=== PATIENT | female | born 1995 | race African-American/Black ===

== ENCOUNTER 2019-03-08 06:37 | Outpatient (CLI) | payer MEDICAID ==
--- NOTE | 2019-03-08 08:31 | ULT ---
PELVIC ULTRASOUND WITH SHAW SCALE AND DOPPLER COLOR FLOW IMAGING TRANSVAGINAL AND TRANSABDOMINAL PELVIC ULTRASOUND PERFORMED: INDICATION: Pain. FINDINGS: No focal uterine lesion is identified. Endometrial stripe measures between 2 and 3 mm. There are ph ysiological-appearing follicles within the ovaries. Doppler assessment does reveal flow to each ovar y, with vascular waveforms elicited. No significant free pelvic fluid. Uterine size is documented at 8 x 5.5 x 5 cm. Right ovarian length is 2.8 cm and left ovarian length is 3.5 cm. Urinary bladder is mildly distended. There is mild prominence of pelvic vasculature. This can be seen in the clinical setting of pelvic co ngestion. IMPRESSION: 1. Doppler flow is documented to each ovary. 2. Normal-caliber endometrial stripe. 3. No definite acute process. POS: FROILANK
== END 2019-03-08 06:38 | disposition home or self-care (01) ==
LOC: BICULT 06:37
PROVIDERS: ATTEND Advanced Practice Midwife
DX: Z01.419 Encounter for gynecological examination (general) (routine) without abnormal findings (principal)
CPT/HCPCS: 76856

== ENCOUNTER 2019-12-30 20:52 | Emergency (ER) | payer MEDICAID ==
[2019-12-30] MEDS ORDERED: Bicillin LA 1.2 MILLION UNITS/2 ML SYRINGE ONE (21:27)
== END 2019-12-30 21:30 | disposition home or self-care (01) ==
LOC: ERS 20:52
DX: J02.0 Streptococcal pharyngitis (principal)
CPT/HCPCS: 87430; 96372; 99283; J0561

== ENCOUNTER 2020-03-19 08:33 | Outpatient (CLI) | payer MEDICAID ==
--- NOTE | 2020-03-19 10:44 | ULT ---
EXAM: OB ultrasound COMPARISON: None HISTORY: female. Evaluate size, dates, and anatomy. TECHNIQUE: Multiplanar grayscale and color Doppler transabdominal sonographic images are obtained. FINDINGS: There is a single intrauterine gestation in cephalic presentation. Cardiac Doppler demonstr ates heart tones with a heart rate of 153 beats per minute. The placenta is located posteriorly without evidence of placenta previa. Subjectively, there is a normal amount of amniotic f luid. Amniotic fluid index was not calculated. The cervical length based on transabdominal imaging measures 4.19 centimeters. biometry measurements: BPD 3.95 cm -- 18 weeks 1 day HC 14.49 cm -- 17 weeks 5 days AC 12.27 cm -- 18 weeks FL 2.61 cm -- 18 weeks The estimated gestational age by ultrasound is 18 weeks with an MERCEDES on08/20/2020. Gestational age by t he last menstrual period is 18 weeks. The estimated weight by ultrasound is 215 g (8 ounces). This represents 31 percentile for weight. A 4 chambered heart is difficult to definitely delineate, there is suggestion of a 4 chambered heart. The cerebellum, visualized portions of the spine, kidneys, urinary bladder, and cord insertion demonstrate a normal sonographic appearance. A three-vessel cord is not visualized. No definite anomalies are seen. IMPRESSION: 1. Single intrauterine gestation in cephalic presentation with heart tones documented. Estimat ed gestational age by ultrasound is 18 weeks. 2. Estimated weight is 215 g per densities 8 ounces).
== END 2020-03-19 08:34 | disposition home or self-care (01) ==
LOC: BICULT 08:33
PROVIDERS: ATTEND Family Medicine
DX: O09.892 Supervision of other high risk pregnancies, second trimester (principal); Z3A.18 18 weeks gestation of pregnancy
CPT/HCPCS: 76805

== ENCOUNTER 2020-08-09 07:44 | Outpatient (CLI) | payer OTHER ==
[2020-08-09 18:34] LABS: SARS-CoV-2 MS2 Positive; SARS-CoV-2 N Gene Negative; SARS-CoV-2 S Gene Negative; SARS-CoV-2 by NAA Not Detected (NotDetected); SARS-CoV-2 orf1ab Negative
== END 2020-08-09 07:45 | disposition home or self-care (01) ==
LOC: LABSCS 07:44
PROVIDERS: ATTEND Family Medicine
DX: Z20.828 Contact with and (suspected) exposure to other viral communicable diseases (principal)
CPT/HCPCS: 87635; U0003

== ENCOUNTER 2020-08-13 09:50 | Inpatient (IN) | payer BC, OTHER ==
[2020-08-13] MEDS ORDERED: hydrALAZINE 20 MG/ML VIAL SLOW IVP PRN ×2 (10:34→16:02)
[2020-08-13] MEDS ORDERED: Lactated Ringer's 1,000 ML IV SCH (10:34)
[2020-08-13] MEDS ORDERED: Promethazine HCl 25 MG/ML VIAL IM PRN ×3 (10:34→16:02)
[2020-08-13] MEDS ORDERED: CEFAZOLIN 2 GM in Premix Bag 1 BAG IVPB SCH (10:34)
[2020-08-13] MEDS ORDERED: Ondansetron PF 4 MG/2 ML Vial IVP PRN ×3 (10:34→16:02)
[2020-08-13] MEDS ORDERED: Oxytocin 10 UNITS/ML VIAL ONE ×4 (10:57→14:19)
[2020-08-13] MEDS ORDERED: PHENYLEPHRINE-NS 100 MCG/ML 10 ML SYRINGE ONE (10:57)
[2020-08-13] MEDS ORDERED: EPHEDRINE 25 MG/5 ML SYRINGE ONE (10:57)
[2020-08-13] MEDS ORDERED: Ondansetron PF 4 MG/2 ML Vial ONE (10:58)
[2020-08-13 11:04] VITALS: BMI 28.6
[2020-08-13 11:11] LABS: Hemoglobin 11.9 g/dL (12.0-16.0); Mean Corpuscular HGB CONC 31.9 g/dL (32.0-36.0); Mean Corpuscular Hemoglobin 24.6 pg (27.0-31.0); Mean Corpuscular Volume 77.3 fL (78.0-98.0); Mean Platelet Volume 9.6 fL (7.4-10.4); Platelet Count 141 thou/uL (130-400); RBC Distribution Width 24.6 % (11.5-14.5); Red Blood Cell (RBC) Count 4.84 mill/uL (4.20-5.40); White Blood Cell (WBC) Count 7.8 thou/uL (4.8-10.8)
[2020-08-13] MEDS ORDERED: Famotidine/PF 20 mg/2ml Vial SLOW IVP SCH (11:30)
[2020-08-13 11:37] LABS: Syphilis Antibody Nonreactive (Nonreactive); Syphilis Antibody Index 0.03 S/CO (<1.00 Non-Reactive)
[2020-08-13 11:38] LABS: HBSAg Index 0.37 S/CO (0-0.99); Hep B Surf Ag Non-Reactive S/CO (NonReactive)
[2020-08-13] MEDS ORDERED: L&D-Morphine 4 MG/ML VIAL SLOW IVP PRN (14:11)
[2020-08-13] MEDS ORDERED: Meperidine HCl/PF 25 MG/ML VIAL SLOW IVP PRN (14:11)
[2020-08-13] MEDS ORDERED: Naloxone HCl 0.4 mg/ml Vial IVP PRN ×2 (14:11)
[2020-08-13] MEDS ORDERED: Ondansetron HCl/PF 4 MG/2 ML Vial IVP PRN (14:11)
[2020-08-13] MEDS ORDERED: HYDROmorphone 2 MG/ML VIAL SLOW IVP PRN (14:11)
[2020-08-13] MEDS ORDERED: diphenhydrAMINE 50 MG/ML VIAL IVP PRN (14:11)
[2020-08-13] MEDS ORDERED: Promethazine HCl 25 MG SUPP PR PRN (14:11)
[2020-08-13] MEDS ORDERED: Naloxone HCl 0.4 mg/ml Vial IV PRN (14:11)
[2020-08-13] MEDS ORDERED: Ketorolac Tromethamine 30 MG/ML VIAL IVP PRN (14:11)
[2020-08-13] MEDS ORDERED: Ketorolac Tromethamine 30 MG/ML VIAL IVP SCH (14:15)
[2020-08-13] MEDS ORDERED: Communication Order-Pharmacy FS SCH (14:15)
[2020-08-13] MEDS ORDERED: Simethicone Chewable 80 MG TAB PO PRN (16:02)
[2020-08-13] MEDS ORDERED: Lanolin Ointment 7 GM TUBE TOP PRN (16:02)
[2020-08-13] MEDS ORDERED: diphenhydrAMINE 25 MG CAP PO PRN (16:02)
[2020-08-13] MEDS ORDERED: Bisacodyl 10 MG SUPP PR PRN (16:02)
[2020-08-13] MEDS: Ketorolac Tromethamine 30 MG/ML VIAL IVP SCH (17:20)
--- NOTE | 2020-08-13 20:13 | OP ---
DATE OF PROCEDURE: 08/13/2020 PRIMARY SURGEON: Emanuel Hopkins MD BOILER INSTALLER SURGEON: Bessy Samayoa MD PROCEDURE PERFORMED: Repeat low-transverse section. PREOPERATIVE DIAGNOSES: 1. Term intrauterine . 2. Previous x2. POSTOPERATIVE DIAGNOSES: 1. Term intrauterine . 2. Previous x2. ANESTHESIA: Spinal. INDICATIONS FOR PROCEDURE: The patient is a 24-year-old, G3, P2-0-0-2 female at 39.1 weeks gestation, who presented for repeat scheduled . PROCEDURE IN DETAIL: After the risks, benefits, and alternatives were explained to the patient, she gave informed consent. Preoperative antibiotics included cefazolin 2 g IV. The patient was taken to the operating room and spinal anesthesia was initiated. She was placed in the supine position with a left tilt, prepped and draped in the usual sterile fashion. A Pfannenstiel incision was made with a scalpel and carried down to the level of the fascia, which was sharply nicked. The fascial cut was extended bilaterally with Gautam scissors. The inferior and superior edges of the cut fascial edges were elevated with Juan clamps and the underlying rectus muscles were sharply and bluntly dissected free. The recti were divided digitally and retracted manually. The peritoneum was entered bluntly and retracted manually. Bladder blade was placed. A low transverse score was made with a scalpel and the uterus was entered in the midline with a scalpel. Clear fluid was seen. The hysterotomy was extended medially. The infant was noted to be vertex and was easily delivered by fundal pressure. Cord was clamped and cut and grossly normal male was handed to waiting nurse. Cord blood was obtained. Placenta was spontaneously delivered and found to be intact with 3-vessel cord discarded. The uterus was externalized, and the endometrium was curetted with a dry lap. The bladder blade was replaced and the uterus was closed with a running locking #1 Monocryl suture followed by a running nonlocking vertical 0 Vicryl imbricating suture. Following this, hemostasis was noted. Abdomen was irrigated with saline and suctioned free of clots. Then, four sheets of Seprafilm were placed over the closed hysterotomy and anterior surface of the uterus. The uterus was then internalized, and the hysterotomy was again noted to be hemostatic. The peritoneum was then closed with a running nonlocking 3-0 Vicryl suture. The fascia was then closed with a running nonlocking 0 PDS suture. Then, the subcutaneous tissue was irrigated and there were no free bleeders. The subcutaneous tissue was then closed with 3 interrupted 3-0 Vicryl deep subcutaneous sutures. The skin was approximated with bryce, and a pressure dressing was placed. All counts were correct. The patient tolerated the procedure well, and was taken to the recovery room in stable condition. ESTIMATED BLOOD LOSS: ~700 mL. COMPLICATIONS: None. SPECIMENS: Cord blood sent to lab for blood type. FINDINGS: 1. Grossly normal male with Apgars of 9 and 9. 2. Grossly normal placenta with 3-vessel cord discarded. DRAINS: Morel to gravity draining clear urine. Job ID: [id number] [facility]
[2020-08-14] MEDS ORDERED: Meperidine HCl/PF 25 MG/ML VIAL IM PRN (02:30)
[2020-08-14] MEDS ORDERED: HYDROcodone/Acetaminophen 5/325 mg Tablet PO PRN (02:30)
[2020-08-14 09:55] LABS: Hemoglobin 10.9 g/dL (12.0-16.0); Mean Corpuscular HGB CONC 31.3 g/dL (32.0-36.0); Mean Corpuscular Hemoglobin 24.4 pg (27.0-31.0); Mean Corpuscular Volume 77.9 fL (78.0-98.0); Mean Platelet Volume 8.6 fL (7.4-10.4); Platelet Count 132 thou/uL (130-400); RBC Distribution Width 23.9 % (11.5-14.5); Red Blood Cell (RBC) Count 4.46 mill/uL (4.20-5.40); White Blood Cell (WBC) Count 6.9 thou/uL (4.8-10.8)
[2020-08-14] MEDS: Ketorolac Tromethamine 30 MG/ML VIAL IVP SCH ×2 (13:43→13:44)
[2020-08-14] MEDS: Ferrous Sulfate 325 MG TAB PO SCH ×2 (13:44→22:17)
[2020-08-14] MEDS: Docusate Calcium (SURFAK) 240 MG CAP PO SCH ×2 (13:44→22:08)
[2020-08-14] MEDS: Prenatal Vitamin 1 TAB PO SCH (13:45)
[2020-08-14] MEDS: HYDROcodone/Acetaminophen 5/325 mg Tablet PO PRN ×2 (14:17→20:14)
[2020-08-14] MEDS ORDERED: Adacel (T-DAP) 0.5 ML SYRINGE IM ONE (16:02)
[2020-08-14] MEDS ORDERED: Ibuprofen 800 MG TAB PO SCH (18:00)
[2020-08-14] MEDS: Ibuprofen 800 MG TAB PO SCH (22:09)
[2020-08-15] MEDS: Ibuprofen 800 MG TAB PO SCH ×3 (05:41→22:26)
[2020-08-15] MEDS: Docusate Calcium (SURFAK) 240 MG CAP PO SCH ×2 (08:00→22:26)
[2020-08-15] MEDS: Prenatal Vitamin 1 TAB PO SCH (08:00)
[2020-08-15] MEDS: Ferrous Sulfate 325 MG TAB PO SCH (08:01)
[2020-08-15] MEDS: HYDROcodone/Acetaminophen 5/325 mg Tablet PO PRN (08:03)
[2020-08-16] MEDS: Ferrous Sulfate 325 MG TAB PO SCH ×2 (02:40→09:15)
[2020-08-16] MEDS: HYDROcodone/Acetaminophen 5/325 mg Tablet PO PRN (02:40)
[2020-08-16] MEDS: Ibuprofen 800 MG TAB PO SCH (05:54)
[2020-08-16 07:52] VITALS: BP 116/68; TEMP 98.3
[2020-08-16] MEDS: Docusate Calcium (SURFAK) 240 MG CAP PO SCH (10:05)
[2020-08-16] MEDS: Prenatal Vitamin 1 TAB PO SCH (10:05)
== END 2020-08-16 12:00 | disposition home or self-care (01) | DRG 788 ==
LOC: L&D-LIB 09:50 → 3SW 16:28
PROVIDERS: ADMIT Family Medicine; ATTEND Family Medicine
PROC: 10D00Z1 Extraction of Products of Conception, Low, Open Approach (ICD-10-PCS; principal; 2020-08-13)
DX: O34.211 Maternal care for low transverse scar from previous cesarean delivery (principal); Z3A.39 39 weeks gestation of pregnancy; Z37.0 Single live birth
CPT/HCPCS: 36415; 51702; 85027; 86780; 86850; 86870; 86900; 86901; 86922; 87340; J1885; J2270; J2405; J2590